=== PATIENT | male | born 1960 | race Caucasian/White ===

== ENCOUNTER → 2021-05-05 | Outpatient (CLI) | payer BC ==
[2021-05-05 12:53] LABS: Basophils # (A) 0.1 k/uL (0-0.2); Basophils % (A) 1 %; Eosinophils # (A) 0.1 k/uL (0-0.7); Eosinophils % (A) 2 %; HCT 48.1 % (39.0-53.0); HGB 15.9 gm/dL (13.0-17.5); Lymphocytes # (A) 1.9 k/uL (1.0-4.8); Lymphocytes % (A) 30 %; MCH 32.8 pg (25.0-35.0); MCHC 33.1 g/dL (31.0-37.0); Mean Platelet Volume 8.7; Monocytes # (A) 0.3 k/uL (0-1.0); Monocytes % (A) 6 %; Neutrophils # (A) 3.7 k/uL (1.3-7.7); Neutrophils % (A) 59 %; Platelet Count 195 k/uL (150-450); RBC 4.86 m/uL (4.30-5.90); RDW 13.3 % (11.5-15.5); WBC 6.2 k/uL (3.8-10.6)
== END | disposition home or self-care (01) ==
LOC: LABPAT 12:21
PROVIDERS: ATTEND Orthopaedic Surgery Hand Surgery
DX: Z01.818 Encounter for other preprocedural examination (principal); R00.1 Bradycardia, unspecified; R22.31 Localized swelling, mass and lump, right upper limb
CPT/HCPCS: 36415; 80051; 85025; 93005

== ENCOUNTER 2021-05-15 11:20 | Day surgery (SDC) | payer BC ==
[2021-05-08 10:58] VITALS: BMI 29.1
--- NOTE | 2021-05-14 22:23 | P.HPIM ---
History of Present Illness H&P Date: 05/14/21 Chief Complaint: Right Ring Finger Soft Tissue Mass Hand Surgery H&P Note Age: 60 year Height: 6'2" Weight: 227 lbs BP:/ BMI: 29.14 kg/m2 Subjective: This 60 year old male who presents with an 8 month history of painful volar rig ht ring finger soft tissue mass that has been fluctuating in size. Patient does not recall any specific injury or inciting event and does not have any recollection of a foreign body entering the area. He states it has been fluctuating in size and has most recently decreased in size however it has been persistent and symptomatic for the last 8 months. He experiences significant amount of pain specifically when he bumps the finger on anything but states he does not have pain at rest. He describes a zinging-type sensation distal to the mass when it is palpated. He denies any paresthesias in any of the other digits and has no other complaints at this time. Current Medications: None Review of Systems: Reviewed and negative unless otherwise states in the HPI Vitals: Height: 6'2", Weight: 227 lbs Smoking: never a smoker Alcohol: currently drinks alcohol Past Medical History: None Current Medications: None Physical Examination: RUE: AIN/PIN/Radial/Ulnar/Median motor intact. Radial/Ulnar/Median SILT. 2+/4 Radial/Ulnar pulses palpated. Small approximately 2 mm palpable mass on the radial border of the volar surface of the right ring finger at the level of the PIP joint. Positive Tinel's over area of the soft tissue, tapping over the mass recreates sharp pain sensation distal to the soft tissue mass in the affected digit. Sensation is intact distal to the mass on both radial and ulnar boarders of the digit. Full painless active and passive range of motion at the right ring finger PIP joint. Nontender to palpation over the A1 brittney of the right ring finger. Radial collateral ligaments intact with stress in full extension and 30 of flexion. Imaging: X-Rays of the right hand were obtained and reviewed which demonstrate mild osteoarthritic changes at the PIP joint of the right ring finger with no obvious bony or soft tissue abnormalities. Impression: 1.) Right ring finger volar soft tissue mass Plan: Treatment options were discussed with the patient. He appears to have a fluctuating in size soft tissue mass that is either involving or having a mass effect on the radial digital nerve of the right ring finger. At this point in time the patient states that he has conservatively managed the mass over the last 8 months but is still continuously having episodes of discomfort and would like to take care of the issue. He is a candidate for surgical intervention consisting of a soft tissue mass excision of the right ring finger due to his persistent pain and symptoms that have been present for over 8 months now. Risks and benefits of surgery were discussed with the patient including recurrence, bleeding, damage to surrounding tissue, and need for further surgery as well as the risks of anesthesia and he agreed to go forth with surgical intervention. Preoperative basic lab work and EKG was ordered. We will plan to schedule a right ring finger soft tissue mass excision in the near future. All questions were answered. -Oscar Mccullough DO Orthopedic Hand/Upper Extremity Surgeon Past Medical History Past Medical History: Musculoskeletal Disorder Additional Past Medical History / Comment(s): seasonal allergies History of Any Multi-Drug Resistant Organisms: None Reported Past Surgical History: Back Surgery, Hernia Repair Additional Past Surgical History / Comment(s): HERNIA ( A CHILD), CATARACT RT EYE, BACK SURG X2, COLONOSCOPY, right knee meniscus repair Past Anesthesia/Blood Transfusion Reactions: Motion Sickness, Postoperative Nausea & Vomiting (PONV) Additional Past Anesthesia/Blood Transfusion Reaction / Comment(s): severe PONV Smoking Status: Never smoker - Past Family History Mother Family Medical History: Cancer Additional Family Medical History / Comment(s): COLON CA Medications and Allergies Home Medications Medication Instructions Recorded Confirmed Type No Known Home Medications 04/09/14 05/08/21 History Allergies Allergy/AdvReac Type Severity Reaction Status Date / Time No Known Allergies Allergy Verified 05/08/21 10:55 Physical Exam Osteopathic Statement: *. No significant issues noted on an osteopathic structural exam other than those noted in the History and Physical/Consult. Thrombosis Risk Factor Assmnt - Choose All That Apply Each Factor Represents 1 point: Age 41-60 years, Minor surgery planned, Obesity (BMI >25) Thrombosis Risk Factor Assessment Total Risk Factor Score: 3 Thrombosis Risk Factor Assessment Level: Moderate Risk
[~2021-05-15 11:20] MED LIST: DEXAMETHASONE SOD PHOSPHATE 4 MG/ML 1 ML VIAL IV ONE; HYDROmorphone 0.5 MG/0.5 ML SYRINGE IVP PRN; LACTATED RINGERS 1,000 ML IV SCH; ONDANSETRON 4 MG/2 ML VIAL IVP ONE
[2021-05-15] MEDS ORDERED: LIDOCAINE 1% (10MG/ML) FOR IV START INTRADERMA ONE (12:05)
[2021-05-15 12:06] VITALS: TEMP 97.6
[2021-05-15] MEDS ORDERED: PROPOFOL 10 MG/ML 20 ML VIAL IV ONE (13:30)
[2021-05-15] MEDS ORDERED: fentaNYL (PF) 50 MCG/ML 2 ML AMP ONE (13:30)
[2021-05-15] MEDS ORDERED: MIDAZOLAM 2 MG/2 ML VIAL ONE (13:30)
[2021-05-15] MEDS ORDERED: BUPIVACAINE (PF) 0.5% 30 ML VIAL SQ ONE ×2 (13:35→13:43)
[2021-05-15] MEDS ORDERED: LIDOCAINE 1% INJ 10MG/ML (20 ML MDV) SQ ONE ×2 (13:35→13:43)
[2021-05-15 14:36] VITALS: BP 141/83; PULSE 66; RESP 16
--- NOTE | 2021-05-15 15:03 | P.PN ---
Progress Note - Text Progress Note Date: 05/15/21 Brief Op Note: Date of Surgery: 05/15/21 Surgeon: Oscar Mccullough DO Preop Diagnosis: Right ring finger soft tissue mass Postop Diagnosis: Same Procedure: Right ring finger excision of soft tissue tumor, deep ([id number]) Anesthesia: General LMA with digital block performed at completion of procedure Complications: None Specimen: Right ring finger soft tissue mass x1 EBL: 0cc Tourniquet Time: 14 minutes Disposition: Stable to PACU Oscar Mccullough DO Orthopedic Hand/Upper Extremity Surgeon
--- NOTE | 2021-05-15 21:46 | P.OP ---
Date of Procedure: 05/15/21 Preoperative Diagnosis: Right ring finger soft tissue mass Postoperative Diagnosis: Right ring finger soft tissue mass Procedure(s) Performed: Right ring finger soft tissue mass excision Anesthesia: MAC Surgeon: Oscar Mccullough Estimated Blood Loss (ml): 0 Pathology: other (Right ring finger soft tissue mass x 1) Condition: stable Disposition: PACU Description of Procedure: Op Note: Date of Surgery: 05/15/21 Surgeon: Oscar Mccullough DO Preop Diagnosis: Right ring finger soft tissue mass Postop Diagnosis: Same Procedure: Right ring finger excision of soft tissue tumor, deep ([id number]) Anesthesia: MAC Anesthesia Complications: None Specimen: Right ring finger soft tissue mass x1 EBL: 0cc Tourniquet Time: 14 minutes Disposition: Stable to PACU Description of Procedure: This is a 60-year-old right-hand dominant male who presented with a right ring finger soft tissue mass for past 8 months that had failed conservative treatment, surgical intervention was discussed and agreed upon. Risks and benefits of surgery including bleeding,recurrence, damage to surrounding tissue possible need for further surgery, infection, and risks of anesthesia were discussed and the patient agreed to go forth with surgical intervention. Preoperative H&P and consent were reviewed and updated in the preoperative area. The correct operative site was marked in the preoperative area by myself. Operative narrative: The patient was brought back by the department of anesthesia and was kept on the stretcher and a hand table was brought to the side of the operative extremity. Preoperative timeout was performed indicating the correct patient, procedure, laterality and all in the room were in agreement. MAC anesthesia was utilized and a 50:50: mixture of 0.5% bupivicaine and 1% lidocaine was utilized to perform a digital nerve block. The right upper extremity was then prepped and draped in normal sterile fashion. 2 g of Ancef were given prior to skin incision. Right upper extremity was elevated and the tourniquet was inflated to 250 mmHg. A carlos type incision was initiated with a 15 blade scalpel at the radial boarder of the PIP joint of the right ring finger over the palpable mass. Blunt dissection was then performed with tenotomy scissors and radial neurovascular bundle was identified and protected. The mass was identified deep to the dermal tissue which appeared to be a small 3x3mm round lobulated vascular overgrowth originating from small venous branches in the subdermal tissue with a deep purple/blue appearance. The proximal and distal ends of the originating small branching venous vessel was cauterized with a needle tip bovie while protecting the nearby neurovascular bundle and the mass was excised in its entirety and sent for pathology. The wound was the irrigated and soft tissue closure was performed with 5-0 nylon suture. Tourniquet was let down at 14 minutes and the digit was immediately perfused. Soft dressing was applied with 4x4s, kerlix wrap, and loosely applied Coban. The patient was then awoken by the department of anesthesia and transferred to PACU in stable condition. -Oscar Mccullough DO Orthopedic Hand/Upper Extremity Surgeon
== END 2021-05-15 14:51 | disposition home or self-care (01) ==
LOC: OR 11:20
PROVIDERS: ATTEND Orthopaedic Surgery Hand Surgery
DX: L72.8 Other follicular cysts of the skin and subcutaneous tissue (principal)
CPT/HCPCS: 26115; 88305; J2250; J1100; J0690; J2405; J2001; J3010; J2704

== ENCOUNTER 2022-02-12 21:16 | Emergency (ER) | payer BC ==
[2022-02-12 21:33] VITALS: PULSE 70; RESP 16; TEMP 98.1
[2022-02-12 21:34] VITALS: BP 133/78
--- NOTE | 2022-02-12 22:02 | XR ---
PROCEDURE: XR Hip Complete RT - 2V DATE AND TIME: 02/12/2022 9:49 PM CLINICAL INDICATION: Pain; fall with pain TECHNIQUE: Department protocol COMPARISON: None FINDINGS: There is no fracture or malalignment. The soft tissues are unremarkable. IMPRESSION: NO ACUTE PROCESS.
--- NOTE | 2022-02-12 22:04 | XR ---
PROCEDURE: XR ankle complete LT - 3V DATE AND TIME: 02/12/2022 9:49 PM CLINICAL INDICATION: Pain fall with pain TECHNIQUE: Department protocol COMPARISON: None FINDINGS: The subtalar joint, and appearance of the calcaneus, appears architecturally altered. Khari edmondson CT characterization. IMPRESSION: Hindfoot findings.
[2022-02-12] MEDS ORDERED: HYDROcodone/APAP 5-325MG 1 EACH TAB PO STA (22:26)
[2022-02-12] MEDS ORDERED: KETOROLAC 15 MG/ML 1 ML VIAL IM STA (22:26)
--- NOTE | 2022-02-12 22:36 | ED ---
Fall HPI - General Chief Complaint: Fall Stated Complaint: Fell of Ladder, Ankle and hip injury Time Seen by Provider: 02/12/22 22:24 Source: patient, family Mode of arrival: wheelchair - History of Present Illness Initial Comments: This is a pleasant 61-year-old male who fell about 10 feet off a ladder onto his left foot.. Patient complaining of pain to the foot as well as the left hip area.Patient denying any other injuries. No head or neck injury. No blood thinners. No chest pain or shortness of breath. No other orthopedic complaints. Patient was up on a ladder doing work at his house. Fell onto grass. No headache, no fever or chills, no changes in vision or hearing, no sore throat or difficulty with speech, no neck pain, no chest pain or shortness of breath, no abdominal pain, no nausea or vomiting, no changes in urination or bowel movements, no numbness or tingling, no extremity pain, no skin rashes or lesions. MD Complaint: fall - Related Data Previous Rx's Medication Instructions Recorded HYDROcodone/APAP 5-325MG [[place] 1 tab PO Q6HR PRN 3 Days #12 tab 02/13/22 5-325] Allergies Allergy/AdvReac Type Severity Reaction Status Date / Time No Known Allergies Allergy Verified 02/12/22 21:29 Review of Systems ROS Statement: Those systems with pertinent positive or pertinent negative responses have been documented in the HPI. ROS Other: All systems not noted in ROS Statement are negative. Past Medical History Past Medical History: Musculoskeletal Disorder Additional Past Medical History / Comment(s): seasonal allergies History of Any Multi-Drug Resistant Organisms: None Reported Past Surgical History: Back Surgery, Hernia Repair Additional Past Surgical History / Comment(s): HERNIA ( A CHILD), CATARACT RT EYE, BACK SURG X2, COLONOSCOPY, right knee meniscus repair Past Anesthesia/Blood Transfusion Reactions: Motion Sickness, Postoperative Nausea & Vomiting (PONV) Additional Past Anesthesia/Blood Transfusion Reaction / Comment(s): severe PONV Past Psychological History: No Psychological Hx Reported Smoking Status: Never smoker Past Alcohol Use History: None Reported Past Drug Use History: None Reported - Past Family History Mother Family Medical History: Cancer Additional Family Medical History / Comment(s): COLON CA General Exam - General Exam Comments Initial Comments: Cranial nerves II through XII are intact. [place] Coma Scale is 15. Patient alert and oriented 4. Limitations: no limitations General appearance: alert, in distress (Secondary to left foot pain) Head exam: Present: atraumatic, normocephalic, normal inspection Eye exam: Present: normal appearance, PERRL, EOMI. Absent: scleral icterus, conjunctival injection, periorbital swelling ENT exam: Present: normal exam, normal oropharynx, mucous membranes moist, normal external ear exam Neck exam: Present: normal inspection, full ROM. Absent: tenderness, meningismus, lymphadenopathy Respiratory exam: Present: normal lung sounds bilaterally. Absent: respiratory distress, wheezes, rales, rhonchi, stridor, chest wall tenderness, accessory muscle use Cardiovascular Exam: Present: regular rate, normal rhythm, normal heart sounds. Absent: systolic murmur, diastolic murmur, rubs, gallop, clicks GI/Abdominal exam: Present: soft, normal bowel sounds. Absent: distended, tenderness, guarding, rebound, rigid Extremities exam: Present: tenderness (Tenderness to left calcaneus. No break in skin integrity. Pedal pulses are intact. Minimal tenderness to the left hip . No significant midline tenderness to the remainder of the spine. Remainder [place] skeletal examination is benign.), normal capillary refill. Absent: normal inspection, pedal edema, joint swelling, calf tenderness Back exam: Present: normal inspection Neurological exam: Present: alert, oriented X3, CN II-XII intact Expanded Patient oriented to: Present: person, place, time Speech: Present: fluid speech Cranial nerves: EOM's Intact: Normal, Gag Reflex: Normal, Tongue Deviation: Normal Motor strength exam: RUE: 5, LUE: 5, RLE: 5, LLE: 5 Eye Response: (4) open spontaneously Motor Response: (6) obeys commands Verbal Response: (5) oriented [place] Total: 15 Psychiatric exam: Present: normal affect, normal mood Skin exam: Present: warm, dry, intact, normal color. Absent: rash Course Vital Signs 02/12/22 21:29 Temperature 98.1 F Pulse Rate 70 Respiratory 16 Rate Blood Pressure 133/78 O2 Sat by Pulse 98 Oximetry Procedures - Orthopedic Splinting/Casting Injury #1 Side: left Lower Extremity Injury Location: short leg Lower Extremity Immobilizer: posterior splint Other Orthopedic Equipment: crutches Additional Comments: Neurovascular status intact Medical Decision Making - Medical Decision Making Patient has isolated fracture to left calcaneus. Did have some mild pain to the left hip and no significant spinal tenderness. Neurologically intact. Placed in a posterior mold splint, crutches, no weightbearing, neurovascular intact. Patient was told to return to the ER for any signs or symptoms worsen. Told to return immediately if any other problems arise. All questions answered. Treatment plan discussed. Patient in agreement Every effort has been made to ensure accuracy of this dictation. However, due to the limitations of electronic medical records and dictation devices, errors in charting still occur. Patient educated on splint care. Education signs and symptoms of compartment syndrome. Given follow-up with orthopedics. Radiology did suggest a computed tomography scan of the calcaneus. However patient is going to get referred to orthopedics anyway. I see no indication to order the CAT scan at this time. We'll allow orthopedics to evaluate first. The case was discussed in detail with ED attending physician. Presentation, findings, treatment plan discussed in detail. Oil Burner Repairer, Dr. Smith - Radiology Data Radiology results: report reviewed, image reviewed Disposition Clinical Impression: Closed left calcaneal fracture Disposition: HOME SELF-CARE Condition: Stable Instructions (If sedation given, give patient instructions): Crutch Instructions (ED), Calcaneal Fracture (ED) Additional Instructions: Follow-up with your regular physician as directed. Return to the ER immediately if any symptoms worsen, new symptoms arise, or any other problems develop. Call at 8 AM tomorrow morning to schedule the appointment with the orthopedic physician. Leave the splint on until follow-up. Elevate the injury is much as possible. If the pain isn't bad he can take regular acetaminophen. Take acetaminophen and the acetaminophen/hydrocodone at the same time. There will be too much Tylenol. He can apply ice 20 minutes on and off to the affected area. Do not get the splinting material wet. Use crutches, no weightbearing. Prescriptions: HYDROcodone/APAP 5-325MG [[place] 5-325] 1 tab PO Q6HR PRN 3 Days #12 tab PRN Reason: Pain Is patient prescribed a controlled substance at d/c from ED?: No Referrals: Daisy Cardona DO [Doctor of Osteopathic Medicine] - As Soon As Possible Time of Disposition: 00:12
--- NOTE | 2022-02-12 22:49 | XR ---
EXAMINATION TYPE: XR lumbar spine 2 or 3V DATE OF EXAM: 02/12/2022 COMPARISON: NONE HISTORY: Pain. Fall. TECHNIQUE: 3 views FINDINGS: Lumbar vertebrae are fairly normal alignment. No compression fracture. Anterior spurring is present throughout the lumbar spine. Posterior element are intact. Sacroiliac joints appear intact. IMPRESSION: Multilevel spondylotic changes. Degenerative spur formation. No fracture seen.
--- NOTE | 2022-02-12 23:20 | XR ---
EXAMINATION TYPE: XR pelvis AP view DATE OF EXAM: 02/12/2022 COMPARISON: NONE HISTORY: Hip pain TECHNIQUE: Single view FINDINGS: Pelvic ring appears intact. Proximal femurs and hip joints are intact. Sacroiliac joints ap pear intact. There are a few phleboliths in the pelvis. IMPRESSION: No acute abnormality the pelvis.
[2022-02-13] MEDS ORDERED: HYDROcodone/APAP 5-325MG 1 EACH TAB PO STA (00:08)
== END 2022-02-13 00:40 | disposition home or self-care (01) ==
LOC: EC 21:16
DX: S92.002A Unspecified fracture of left calcaneus, initial encounter for closed fracture (principal); W11.XXXA Fall on and from ladder, initial encounter
CPT/HCPCS: 72100; 72170; 73502; 73610; 29515; 99283; 96372; J1885

== ENCOUNTER → 2022-02-16 | Outpatient (CLI) | payer BC ==
--- NOTE | 2022-02-16 21:05 | CT ---
EXAMINATION TYPE: CT ankle LT wo con CT DLP: 264.6 mGycm, Automated exposure control for dose reduction was used. DATE OF EXAM: 02/16/2022 6:21 PM COMPARISON: . Extremity radiograph same day. CLINICAL INDICATION:Male, 61 years old with history of S92.062A DISPLACED INTRAARTICULAR FRACTURE OF LEFT; TECHNIQUE: Axial images were obtained of the left foot without the use of IV contrast. Additional co leatha and sagittal reformatted images and soft tissue and bone window were obtained for review. 3-D r econstruction was created on a separate workstation. FINDINGS: There is a comminuted tongue type fracture of the calcaneus. Calcaneus fracture lines exten d into the subtalar articular surfaces. There is soft tissue edema throughout the foot. Multiple piec es of the calcaneus appear to be depressed including the posterior subtalar articular surface. No add itional fractures are definitively visualized. IMPRESSION: Comminuted tongue type fracture of the calcaneus with intra-articular extension multiple depressed fr agments.
== END | disposition home or self-care (01) ==
LOC: RADCTMAIN 17:01
PROVIDERS: ATTEND Podiatrist
DX: S92.062A Displaced intraarticular fracture of left calcaneus, initial encounter for closed fracture (principal)

== ENCOUNTER → 2024-07-07 | Outpatient (CLI) | payer BC ==
--- NOTE | 2024-07-07 11:01 | XR ---
Thoracic spine HISTORY: Neck pain. COMPARISON: None. TECHNIQUE: 4 views of the thoracic spine were obtained. FINDINGS: The thoracic vertebral segments are normal in height and alignment is no fracture or subluxation. The re is diffuse spondylosis indicating mild degenerative disease. The paraspinal soft tissues are unrem arkable. IMPRESSION: Mild diffuse degenerative disc disease with no other significant abnormality seen. [facility], , 07/07/2024 10:59 AM
--- NOTE | 2024-07-07 11:03 | XR ---
Right ribs. HISTORY: Chest pain COMPARISON: None TECHNIQUE: 4 views of the right ribs are obtained. FINDINGS: There is no rib fracture or focal intraosseous abnormality. The right lung is clear. There is no pleu ral effusion or pleural thickening or pneumothorax. IMPRESSION: No significant abnormality seen. [facility], Workstation: [facility], 07/07/2024 11:01 AM
--- NOTE | 2024-07-07 11:06 | XR ---
Cervical spine HISTORY: Neck pain COMPARISON: None. TECHNIQUE: 5 views of cervical spine were obtained. FINDINGS: The craniovertebral junction relationships and prevertebral soft tissues are normal. The cervical vertebral body segments are normal in height and alignment and there is no fracture or s ubluxation. There is mild disc space narrowing at the C6-7 level indicating mild degenerative disease . There is mild anterior spondylosis from C4 through C7. The facet joints are intact. There is mild degeneration of the uncovertebral joints in the mid lower cervical spine resulting in m ild bony neural foraminal encroachment at C5 C5-6 on the right and C6-7 on the left. IMPRESSION: 1. Mild osteoarthritic change of the uncovertebral joints in the mid lower cervical spine resulting i n mild bilateral neural foraminal encroachment at C5-6 in the right and C6-7 on the left. 2. Mild degenerative disease at the C6-7 level. [facility], Workstation: [facility], 07/07/2024 11:04 AM
== END | disposition home or self-care (01) ==
LOC: RADXRMAIN 09:25
PROVIDERS: ATTEND Family Medicine
DX: M99.08 Segmental and somatic dysfunction of rib cage (principal); M50.323 Other cervical disc degeneration at C6-C7 level; M51.14 Intervertebral disc disorders with radiculopathy, thoracic region; R07.9 Chest pain, unspecified; M47.22 Other spondylosis with radiculopathy, cervical region; M50.123 Cervical disc disorder at C6-C7 level with radiculopathy
CPT/HCPCS: 72050; 72072

== ENCOUNTER → 2024-08-14 | Outpatient (CLI) | payer BC ==
--- NOTE | 2024-08-14 22:11 | MR ---
EXAMINATION TYPE: MR cervical spine wo con DATE OF EXAM: 08/14/2024 9:59 PM COMPARISON: None. CLINICAL INDICATION: Male, 64 years old with history of M54.12 CERVICAL RADICULOPATHY, neck pain, num bness down right arm into fingers for 1year, history of fall of ladder 2 years ago on right arm TECHNIQUE: Multiplanar multiecho imaging on a 3.0 Rosy magnet is performed through the cervical spin e. IV Contrast: mL (None, if empty) FINDINGS: The craniovertebral junction is normal. Vertebral body alignment is normal. Vertebral josefina dy heights are preserved. Disc heights are preserved. Mild diffuse disc desiccation is present. C7-T1: No focal disc herniation or significant disc bulge is evident. No spinal canal stenosis or n eural foraminal stenosis is present. C6-7: Broad-based disc bulge is present with anterior thecal sac flattening. No AP spinal canal steno sis is evident. Cord contact is evident. Mild left foraminal narrowing is present. C5-6: Mild disc bulge is present. This may extend to the right paracentral to right lateral direction with foraminal stenosis. No cord contact is evident. Correlate with right radicular symptoms.. C4-5: No focal disc herniation or significant disc bulge is evident. No spinal canal stenosis or jose manuel ral foraminal stenosis is present. C3-4: No focal disc herniation or significant disc bulge is evident. No spinal canal stenosis or jose manuel ral foraminal stenosis is present. C2-3: No focal disc herniation or significant disc bulge is evident. No spinal canal stenosis or jose manuel ral foraminal stenosis is present. IMPRESSION: 1. Mild right paracentral to right lateral disc bulge C5-6. Correlate with right radicular symptoms. No spinal canal stenosis present. Some right foraminal narrowing is present. 2. Minimal disc bulging C6-7 with anterior thecal sac flattening. No cord contact evident. [facility], , 08/14/2024 10:08 PM
== END | disposition home or self-care (01) ==
LOC: RADMRIMAIN 21:30
PROVIDERS: ATTEND Orthopaedic Surgery
DX: M50.122 Cervical disc disorder at C5-C6 level with radiculopathy (principal)
CPT/HCPCS: 72141

== ENCOUNTER → 2025-02-13 | Outpatient (CLI) | payer BC ==
[2025-02-13 15:11] LABS: HCT 47.1 % (39.6-50.0); HGB 15.6 g/dL (13.0-17.0); MCH 31.6 pg (27.0-32.0); MCHC 33.1 g/dL (32.0-37.0); MCV 95.3 FL (80.0-97.0); Mean Platelet Volume 11.3 FL (9.5-12.2); NRBC Per 100 WBC 0 X 10*3/uL (0.00-0.01); Platelet Count 191 X 10*3/uL (140-440); RBC 4.94 X 10*6/uL (4.40-5.60); RDW 13.2 % (11.5-14.5); WBC 7.13 X 10*3/uL (4.50-10.00)
[2025-02-13 15:12] LABS: Basophils # (A) 0.07 X 10*3/uL (0.00-0.10); Eosinophils # (A) 0.21 X 10*3/uL (0.04-0.35); Eosinophils % (A) 2.9 %; Lymphocytes # (A) 2.02 X 10*3/uL (0.90-5.00); Lymphocytes % (A) 28.3 %; Monocytes # (A) 0.64 X 10*3/uL (0.20-1.00); Neutrophils # (A) 4.13 X 10*3/uL (1.80-7.70)
[2025-02-13 15:13] LABS: Anion Gap 10.2 mmol/L (4.00-12.00); Carbon Dioxide 27.8 mmol/L (21.6-31.8); Potassium 4.4 mmol/L (3.5-5.5)
== END | disposition home or self-care (01) ==
LOC: LABWHC1 09:35
PROVIDERS: ATTEND Orthopaedic Surgery
DX: Z01.812 Encounter for preprocedural laboratory examination (principal); I45.10 Unspecified right bundle-branch block; M75.41 Impingement syndrome of right shoulder
CPT/HCPCS: 36415; 80051; 85025; 93005

== ENCOUNTER 2025-03-08 07:48 | Day surgery (SDC) | payer BC ==
--- NOTE | 2025-03-07 14:21 | HP ---
HISTORY AND PHYSICAL DATE OF SURGERY: 03/08/2025 HISTORY OF PRESENT ILLNESS: Jonathan Ramirez is a 64-year-old gentleman seen progressive right shoulder pain. Options discussed. He had post right shoulder arthroscopy. Consents obtained. PAST MEDICAL HISTORY: Noncontributory. PAST SURGICAL HISTORY: Noncontributory. DAILY MEDICATIONS: Celebrex, Tylenol. ALLERGIES: None. SOCIAL HISTORY: He denies tobacco use. PHYSICAL EVALUATION OF THE RIGHT SHOULDER: Flexion is 90 degrees. Abduction is 80 degrees. External rotation is 50 degrees with pain and weakness. Tenderness anterior lateral acromion, acromioclavicular joint, bicipital groove, long-head biceps tendon, rotator cuff tendon. Impingement is positive at 90 degrees. Cross-body adduction sign is positive. Drop-arm sign is positive. Distal neurovascular exam is intact. IMAGING STUDIES: Right shoulder radiographs revealed a type 2 acromion, acromioclavicular joint osteoarthritis and cystic changes of the tuberosity. MRI of right shoulder, labral tear, impingement, bicipital tendinitis, partial rotator cuff tendon tear and acromioclavicular joint osteoarthritis. IMPRESSION: 1. Right shoulder impingement with labral tear and partial rotator cuff tendon tear. 2. Right shoulder acromioclavicular joint osteoarthritis. Right shoulder bicipital tendinitis. PLAN: Right shoulder arthroscopy with subacromial decompression, possible rotator cuff repair. aracely Kong tenodesis and debridement of labral tear. MMODL / IJN: [id number] /
[~2025-03-08 07:48] MED LIST changes: -DEXAMETHASONE SOD PHOSPHATE 4 MG/ML 1 ML VIAL IV ONE; -LACTATED RINGERS 1,000 ML IV SCH; +LIDOCAINE 1% (10MG/ML) FOR IV START INTRADERMA PRN; -ONDANSETRON 4 MG/2 ML VIAL IVP ONE; +droPERidol 2.5 MG/ML VIAL IVP ONE
[2025-03-08] MEDS: IV FLUID CONTINUATION 1,000 ML IV ONE (08:15)
[2025-03-08] MEDS: LACTATED RINGERS 1,000 ML IV SCH (08:36)
[2025-03-08] MEDS: ONDANSETRON 4 MG/2 ML VIAL IVP ONE (08:37)
[2025-03-08] MEDS: DEXAMETHASONE SOD PHOSPHATE 4 MG/ML 1 ML VIAL IV ONE (08:37)
[2025-03-08] MEDS: MIDAZOLAM 2 MG/2 ML VIAL IV ONE (08:41)
[2025-03-08] MEDS: SCOPOLAMINE 1 MG/72 HR PATCH TRANSDERM STA (08:52)
[2025-03-08] MEDS ORDERED: PROPOFOL 10 MG/ML 20 ML VIAL IV ONE (09:13)
[2025-03-08] MEDS ORDERED: LIDOCAINE 4% LTA KIT (4 ML) TOPICAL ONE (09:13)
[2025-03-08] MEDS ORDERED: ROPIVACAINE 5 MG/ML 30 ML VIAL ONE (09:13)
[2025-03-08] MEDS ORDERED: LIDOCAINE 1% INJ 10MG/ML (20 ML MDV) ONE (09:13)
[2025-03-08] MEDS ORDERED: SUCCINYLCHOLINE CHLORIDE 200 MG/10 ML VIAL IV ONE (09:13)
[2025-03-08] MEDS ORDERED: MIDAZOLAM 2 MG/2 ML VIAL ONE (09:13)
[2025-03-08] MEDS ORDERED: DEXAMETHASONE SOD PHOSPHATE 4 MG/ML 1 ML VIAL ONE (09:13)
[2025-03-08 10:56] VITALS: TEMP 96.9
--- NOTE | 2025-03-08 10:57 | P.OP ---
Date of Procedure: 03/08/25 Preoperative Diagnosis: Right shoulder impingement Postoperative Diagnosis: 1. Right shoulder rotator cuff tear 2. Right shoulder impingement 3. Right shoulder partial long head biceps tendon tear 4. Right shoulder acromioclavicular joint osteoarthritis 5. Right shoulder superficial labral Procedure(s) Performed: 1. Right shoulder arthroscopic rotator cuff repair 2. Right shoulder arthroscopic subacromial decompression 3. Right shoulder arthroscopic biceps tenodesis 4. Right shoulder arthroscopic Dilan procedure 5. Right shoulder arthroscopic debridement labral tear Implants: 1Arthrex 4.75 swivel lock anchor 1Arthrex 5.5 swivel lock anchor Anesthesia: GETA, regional ( interscalene block) Surgeon: Corona Shoemaker Mixer Blender #1: Domenic Batista Estimated Blood Loss (ml): 10 Pathology: none sent Condition: stable Disposition: PACU Indications for Procedure: 64-year-old patient seen with progressive right shoulder pain. After having treatment options discussed, he elected to proceed with arthroscopy. Operative Findings: See description of procedure Description of Procedure: Patient underwent an interscalene block by department of anesthesia. The patient was then taken to the operative suite. The patient underwent a general anesthetic by the department of anesthesia. The patient was placed into a lateral position and secured. There was appropriate padding of the bony prominence. Right shoulder was then prepped and draped in normal sterile orthopedic fashion. We placed the extremity in 10 pounds of longitudinal traction. A posterior incision was now made for a posterior working portal site. The trocar and cannula were inserted into the glenohumeral joint. Arthroscopy was initiated. Spinal needle was now inserted anteriorly, to ascertain the anterior working portal site. An incision was now made in that area, a trocar was inserted followed by a probe. There was partial tearing long head biceps tendon. There was superficial labral tear. There were grade I chondromalacia changes. I reduced a motorized shaver and debrided out the superficial labral tear. I introduced the cannula through the anterior portal site. I passed a loop and tack stitch through the biceps tendon and then I released it from the superior labral anchor. With the assistance of Chris mckinney at the interval for insertion of an anchor. The suture was not passed through the eyelet of an Arthrex 4.75 swivel lock anchor. I placed the eyelet into the prepunched hole and held in position while Chris DAMON tensioned the suture and deployed the anchor with good fixation noted. The residual suture limb was clipped. There was a stable appearing biceps tenodesis. The residual labrum was probed and was found to be stable. Instruments were now removed from the glenohumeral joint. Utilizing the posterior working portal site, the trocar and cannula were inserted into the subacromial space. Arthroscopy initiated. I made an incision 2 fingerbreadths lateral to the acromion. I introduced my trocar followed by my ArthroCare ablator. I now began ablating thick subacromial bursal tissue, which exposed the undersurface of the anterior acromion. There was diminished subacromial space. There was a very prominent anterior acromion. A motorized bur was introduced and a subacromial decompression was performed. I also excised some osteophytes off the inferior aspect of the distal clavicle. The AC joint was visualized and noted to be fairly arthritic. The motorized bur was introduced in the anterior portal site and a Dilan procedure was performed without difficulty, decompressing the AC joint nicely. I turned my attention to the rotator cuff. There was a full-thickness perforation/tear along the distal supraspinatus a little anteriorly. I debrided the margins getting down to stable tendon tissue. The defect/tear measured about 1.5 cm and was freely mobile over the footprint. I abraded the footprint with a motorized bur. With the assistance of Chris DAMON I passed 2 Ubretid mattress sutures through good bites of rotator cuff tendon. I all 4 limbs of suture were passed through the eyelet of an Arthrex 5.5 swivel lock anchor. I placed the eyelet into the free punched hole. I held it in position while Chris DAMON tensioned all 4 limbs of suture and deployed the anchor with good fixation noted. All residual suture limbs were now clipped. We had good compression of the tendon along the entire footprint. Instruments now removed from the portal sites. All portal sites were approximated with nylon suture. Sterile dressings were applied followed by a shoulder sling. Domenic DAMON assisted in all aspects of this case. The patient was awakened, transferred to a bed, and taken to recovery in stable condition.
[2025-03-08 11:46] VITALS: PULSE 60
[2025-03-08 12:18] VITALS: BP 150/93; RESP 15
--- NOTE | 2025-03-09 06:47 | P.ANPRN ---
Procedure Note - Anesthesia - Nerve Block Performed Right Interscalene Single Time Out Performed: Yes Date of Procedure: 03/08/25 Procedure Start Time: 08:40 Procedure Stop Time: 08:45 Location of Patient: PreOp Indication: Acute Post-Operative Pain, Requested by Surgeon Sedation Type: Sedate with meaningful contact maintained Preparation: Sterile Prep Position: Supine Needle Types: Pajunk Needle Gauge: 21 Ultrasound used to visualize needle placement: Yes Ultrasound used to observe medication spread: Yes Blood Aspirated: No Pain Paresthesia on Injection Noted: No Resistance on Injection: Normal Image Stored and Saved: Yes Events: Uneventful and Well Tolerated (Ropivacaine 0.5% 20 cc plus dexamethasone 4 mg)
== END 2025-03-08 12:45 | disposition home or self-care (01) ==
LOC: OR 07:48
PROVIDERS: ATTEND Orthopaedic Surgery
DX: S46.111A Strain of muscle, fascia and tendon of long head of biceps, right arm, initial encounter (principal); S43.401A Unspecified sprain of right shoulder joint, initial encounter; M75.111 Incomplete rotator cuff tear or rupture of right shoulder, not specified as traumatic; M75.41 Impingement syndrome of right shoulder; M75.21 Bicipital tendinitis, right shoulder; M19.011 Primary osteoarthritis, right shoulder; G89.18 Other acute postprocedural pain; E78.5 Hyperlipidemia, unspecified; Z79.899 Other long term (current) drug therapy; X58.XXXA Exposure to other specified factors, initial encounter
CPT/HCPCS: 64415; 29824; 29826; 29827; 29828; C1713 ×3; J2250; J0330; J1100; J0690; J2405; J2003; J2795; J2704